=== PATIENT | female | born 1995 | race Caucasian/White ===

== ENCOUNTER 2021-01-20 06:15 | Day surgery (SDC) | payer OTHER ==
--- NOTE | 2021-01-15 08:54 | P.HPOB ---
History of Present Illness H&P Date: 01/15/21 Chief Complaint: Redundant labia Lori is a 25-year-old female with left-sided redundant labia. It catches on clothing and causes discomfort and pain and therefore we are doing a labioplasty. Risks/benefits/alternatives reviewed with patient in detail and all questions were answered for her prior to proceeding to the operative room. She is aware there is potential for bleeding and infection as well as since this has not been done specifically cosmesis it may not be completely the same on both sides and potentially she may even need further surgery at some point. She relates that the baby did start getting larger when she was a child and she had an injury to that area and had hypertrophied out from there. Exam Osteopathic Statement: *. No significant issues noted on an osteopathic structural exam other than those noted in the History and Physical/Consult. - OBG Physical Exam Breast: both: normal (no masses) Abdomen: bowel sounds normal, no diffuse tenderness, no bruit present, no guarding noted, no hepatomegaly, no splenomegaly, no mass Vulva: both: normal Vagina: normal moisture, no discharge Cervix: no lesion, no discharge Uterus: normal size, normal contour Adnexa: both: normal Anus/Rectum: normal perianal skin, no rectal mass, no hemorrhoids, heme negative
[2021-01-16 08:43] VITALS: BMI 24.1
[~2021-01-20 06:15] MED LIST: DEXAMETHASONE SOD PHOSPHATE 4 MG/ML 1 ML VIAL IV ONE; LACTATED RINGERS 1,000 ML IV SCH; LIDOCAINE 1% (10MG/ML) FOR IV START INTRADERMA PRN; MIDAZOLAM 2 MG/2 ML VIAL IV PRN; ONDANSETRON 4 MG/2 ML VIAL IVP ONE; Pre Op ABX Message 1 EACH MISC MISCELLANE ONE
[2021-01-20] MEDS ORDERED: LACTATED RINGERS 1,000 ML IV ONE ×2 (06:40→08:52)
[2021-01-20] MEDS ORDERED: MIDAZOLAM 2 MG/2 ML VIAL ONE (07:28)
[2021-01-20] MEDS ORDERED: LIDOCAINE 1% INJ 10MG/ML (20 ML MDV) ONE (07:28)
[2021-01-20] MEDS ORDERED: PROPOFOL 10 MG/ML 20 ML VIAL IV ONE (07:28)
[2021-01-20] MEDS ORDERED: ACETAMINOPHEN IV (For NPO) 1,000 MG/100 ML VIAL ONE (07:28)
[2021-01-20] MEDS ORDERED: fentaNYL (PF) 50 MCG/ML 2 ML AMP ONE (07:28)
[2021-01-20] MEDS ORDERED: BUPIVACAINE (PF) 0.25% 30 ML VIAL SQ ONE (07:55)
[2021-01-20 08:18] VITALS: TEMP 97.4
[2021-01-20] MEDS: HYDROmorphone 0.5 MG/0.5 ML SYRINGE IVP PRN ×2 (08:32→08:45)
--- NOTE | 2021-01-20 08:33 | P.OP ---
Date of Procedure: 01/20/21 Preoperative Diagnosis: Redundant labia Postoperative Diagnosis: Same Procedure(s) Performed: Labioplasty left labial Anesthesia: YUMIKO Surgeon: Yobany Rutherford Estimated Blood Loss (ml): 5 Pathology: none sent (Labia left side) Condition: stable Disposition: same day Operative Findings: Pathology pending Description of Procedure: Patient was taken to the operating suite where general anesthetic was found be adequate. She was prepped and draped in the normal sterile fashion and placed in the dorsal lithotomy position. Initially the labia was identified and marked excision. Quarter percent Marcaine was then injected submucosally and using a small scissors the labia was reduced. Once it was felt to be equal with the right side interrupted 4-0 Vicryl suture was placed to obtain hemostasis. Once this was concluded Estrace was placed and a Telfa was placed on top bacitracin area she was then taken to the recovery room in stable and satisfactory condition. Sponge, lap, needle counts were all correct 2. Plan - Discharge Summary Discharge Rx Participant: No New Discharge Prescriptions: New Ibuprofen [Motrin] 600 mg PO Q6HR PRN #30 tab PRN Reason: Pain No Action Albuterol Inhaler [Ventolin Hfa Inhaler] 1 puff INHALATION DIRECTED PRN PRN Reason: Asthma Discharge Medication List Albuterol Inhaler [Ventolin Hfa Inhaler] 1 puff INHALATION DIRECTED PRN 01/16/21 [History] Ibuprofen [Motrin] 600 mg PO Q6HR PRN #30 tab 01/20/21 [Rx] Follow up Appointment(s)/Referral(s): Yobany Rutherford DO [Doctor of Osteopathic Medicine] - 1 Week Activity/Diet/Wound Care/Special Instructions: No heavy lifting, limit stairs and driving, and complete pelvic rest. If any high temperatures, heavy bleeding, or severe pain notify our office Discharge Disposition: HOME SELF-CARE
[2021-01-20 08:46] VITALS: RESP 16
[2021-01-20] MEDS ORDERED: IBUPROFEN 200 MG TAB PO ONE (09:20)
[2021-01-20 09:31] VITALS: BP 117/72; PULSE 87
== END 2021-01-20 09:47 | disposition home or self-care (01) ==
LOC: OR 06:15
PROVIDERS: ATTEND Obstetrics & Gynecology
DX: N90.69 Other specified hypertrophy of vulva (principal)
CPT/HCPCS: 81025; 88302; 56620; J2250; J1100; J2405; J2001; J3010; J0131; J2704; J1170